=== PATIENT | male | born 1975 | race Caucasian/White ===

== ENCOUNTER 2020-07-02 13:39 | Emergency (ER) | payer OTHER ==
[~2020-07-02] VITALS: Ht 182.9 cm; Wt 147.4 kg
[2020-07-02] MEDS ORDERED: IBUPROFEN 800800 M1 PO (15:05)
[2020-07-02] MEDS ORDERED: NORCO5 PO (15:05)
[2020-07-02 15:17] VITALS: BP 143/86
== END 2020-07-02 15:17 | disposition home or self-care (01) ==
LOC: ER 13:39
DX: S80.212A Abrasion, left knee, initial encounter (principal); M25.532 Pain in left wrist; M54.5 Low back pain; I10 Essential (primary) hypertension; E11.9 Type 2 diabetes mellitus without complications; Z88.8 Allergy status to other drugs, medicaments and biological substances; W01.0XXA Fall on same level from slipping, tripping and stumbling without subsequent striking against object, initial encounter; Y93.01 Activity, walking, marching and hiking; Y92.89 Other specified places as the place of occurrence of the external cause; Y99.9 Unspecified external cause status